=== PATIENT | male | born 1970 | race Caucasian/White ===

== ENCOUNTER → 2017-09-26 14:45 | Outpatient (CLI) | payer OTHER, SELFPAY ==
[2017-09-26 16:57] LABS: T4 Free Direct 1.39 ng/dL (0.76-1.46); Thyroid Stim Hormone (TSH) 0.77 uIU/mL (0.358-3.74)
== END ==
PROVIDERS: Family Provider Family Medicine; PCP Family Medicine; Visit Provider Family Medicine
DX: E03.9 Hypothyroidism, unspecified (principal)
CPT/HCPCS: 36415; 84439; 84443

== ENCOUNTER 2017-11-15 09:00 | Outpatient (RCR) | payer OTHER, SELFPAY ==
--- NOTE | 2017-09-05 14:07 | HP.PTEVAL_ITS ---
Patient's Visit Information ENRRIQUE VILLANUEVA is a 47 year old M referred to Physical Therapy by Enrrique Bryan with a diagnosis of LLD. Date of Evaluation: 09/04/17 Physical Therapist: Bianka White - Visit Plan Frequency: 1x/Week Duration: 4 Weeks Plan: Fit for orthotics - Subjective Subjective: Dr Bryan found out that he has been having pain on the left side down towards the ankle. He thinks left is shorter than the right by 1 cm. He was working and walking a lot and he has had pain for several months. [place] a crack in his ankle and started to feel pain. walks one mile to work and one mile home. [employer] so he is standing. Works 5 hours. Wears slip resistance shoes and has new shoes that did not make a difference. Pain comes and goes. Best: 0/10 Eases: sitting down Agg: walking or standing for long periods of time. No radiating pain. No Tingling in the toes. Describes the pain as sharp/shooting. Sleep: not disturbed. No back or hip pains. Works out and does exercises in the basement at home. PMHx: hernia, thyroid. Meds: thyroid. Lives with family. - Objective Posture: FH, RS, increased kyphosis. Gait: no deviation noted but he does have moderate pes planus. SLS: 30 sec without LOB. HR/TR: able. Stairs: asc/desc 8 recip with 1 HR. Palpation: not tender throughout left LE. ROM: WNL in all planes of ankle/hip/knee of the left LE. Strength: Ankle: 5/5, Knee: 5/5 Hip: 4 +/5 throughout. Flex: Gastroc: mild restriction, Hamstring: moderate restriction. LLD: none noted at malleolus. Pelvic alignment: WNL - Goals Goal 1:: Patient will be I with orthotic wear Goal Time Frame: 4-6 Weeks - Rehabilitation Potential Physical Therapy Diagnosis: patient presents with increased pes planus and cortez pain Rehabilitation Potential: Fair - Anticipated Interventions Thank you for the opportunity to evaluate your patient. For Medicare and Medicare HMO plans, please review the plan of care and approve it. It will need to be FAXED BACK to us at [phone] for Medicare purposes. Please let me know if there are questions or concerns regarding this plan of care. Physician Signature: Date:
--- NOTE | 2017-11-15 12:06 | HP.PTDCSUM ---
HP - PT D/C Summary It has been my pleasure to treat ENRRIQUE VILLANUEVA under orders from Enrrique Bryan, for the diagnosis of LLD for a total of 3 visit(s). Discharge Date: 11/15/17 Please see the following information for a summary of their discharge status. - Subjective Subjective: 12 days ago walking down bleachers turned L ankle. Walked out of there but it hurt. No doctor visit yet. It still hurts. Was feeling better with inserts before he turned his ankle. L lateral ankle is where it hurts and it remains swollen. Not improving. Inserts wrok ok and may have been helping leg pain. - Pain L lateral ankle Pain Intensity (Out of 10): 3 - Objective Objective/Function: L ankle. AROM is full but painful with PF and inv end range. Strength is normal on DF and inv but ev and PF weak and painful. Very tender over fibular malleolus bone but not in soft tissue. Pt has L antalgia. - Goals Goal 1:: Patient will be I with orthotic wear Goal Progress: Goal Met - Plan Plan: D/C, pt to return to doctor for next step on new ankle sprain. - D/C Information Discharge Comments: Pt doing well with orthotics but has sprained ankle nad has a new injury. I recommend he schedule with doctor for possible x ray due to new tenderness over L lat malleoli. If there are questions or concerns regarding this patient's physical therapy, please feel free to call me at [phone]. Thank you for the referral of this patient. Sincerely, Enrrique Bob, DPT, OC
== END 2017-11-15 19:00 | disposition home or self-care (01) ==
LOC: PT 09:00
PROVIDERS: Family Provider Family Medicine; PCP Family Medicine; Visit Provider Family Medicine
DX: M21.70 Unequal limb length (acquired), unspecified site (principal); M24.9 Joint derangement, unspecified
CPT/HCPCS: 97162; 97164; 97763

== ENCOUNTER → 2017-11-15 09:59 | Outpatient (CLI) | payer OTHER, SELFPAY | PROVIDERS: Family Provider Family Medicine; PCP Family Medicine; Visit Provider Nurse Practitioner Family | DX: M25.572 Pain in left ankle and joints of left foot (principal) | CPT/HCPCS: 73610 ==

== ENCOUNTER 2017-11-20 16:23 | Outpatient (RCR) | payer OTHER, SELFPAY ==
--- NOTE | 2017-11-20 16:58 | HP.PTEVAL_ITS ---
Patient's Visit Information RACHELE VILLANUEVA is a 47 year old M referred to Physical Therapy by ZAY Stevenson with a diagnosis of Left Ankle Sprain. Date of Evaluation: 11/20/17 Physical Therapist: Bianka White - Visit Plan Plan: Patient presents with ankle sprain at this time PT feels appropriate for brace and hold for 3 weeks to assess if not better - Subjective Subjective: Patient reports falling on the bleachers at the high school and spraining his left ankle. Patient reports that when he is working his ankle bothers him and when he is walk long distances. The pain is not getting any better. Pain comes and goes. When he is relaxed the pain does not bother him at all. Had an x-ray which showed that it was not broken. Is not wearing a brace. Ices when he sleeps at night. Wears orthotics in the shoes. PMHx/meds: no change since last time he was in. - Objective Posture: FH, RS. Gait: no deviation noted- mild toe turned in on the left> right. SLS: unable to SLS but can weight shift and maintain with UE A for 30 seconds with no increased sway- mild increase in s/s. HR/TR: able with mild increase in s/s. ROM: WFL in all planes. Strength: 5/5 throughout. Palpation : tender along posterior malleolus. Flex: Gastroc: mild restriction Soleus: no restriction. Observation: no edema, no bruising. - Rehabilitation Potential Physical Therapy Diagnosis: Patient presents with ankle sprain at this time PT feels appropriate for brace and hold for 3 weeks to assess if not better - Anticipated Interventions Thank you for the opportunity to evaluate your patient. For Medicare and Medicare HMO plans, please review the plan of care and approve it. It will need to be FAXED BACK to us at [phone] for Medicare purposes. Please let me know if there are questions or concerns regarding this plan of care. Physician Signature: Date:
== END 2017-11-20 19:00 | disposition home or self-care (01) ==
LOC: PT 16:23
PROVIDERS: Family Provider Family Medicine; PCP Family Medicine; Visit Provider Nurse Practitioner Family
DX: S93.402D Sprain of unspecified ligament of left ankle, subsequent encounter (principal)
CPT/HCPCS: 97161

== ENCOUNTER → 2017-12-01 09:26 | Outpatient (CLI) | payer OTHER, SELFPAY ==
--- NOTE | 2017-12-01 09:31 | RAD_ITS ---
STUDY: X-RAY - ABDOMEN/PELVIS REASON FOR EXAM: Male, 47 years old. Abdominal pain and abdominal collects. TECHNIQUE: 3 upright views were obtained. COMPARISON: None. FINDINGS: Normal visualized lung bases. There is an abundance of fecal material throughout the colon. There is no demonstrated free abdominal air. The visualized liver, spleen and kidneys are grossly normal in size and morphology. Normal soft tissue structures. There is a grade 2 anterolisthesis of L4 on L5. RAD/Abd Inc Decub and/or Erect IMPRESSION: Large amount of fecal material is seen throughout the colon. Electronically Signed: Hernan Lopez MD at 11:30 EDT Tel [phone], Service support ,
== END ==
PROVIDERS: Family Provider Family Medicine; PCP Family Medicine; Visit Provider Family Medicine
DX: R10.84 Generalized abdominal pain (principal)
CPT/HCPCS: 74019

== ENCOUNTER 2018-03-15 03:46 | Emergency (ER) | payer OTHER, SELFPAY ==
[2018-03-15 03:48] VITALS: BP 141/101; PULSE 52; RESP 16; TEMP 36.4; O2SAT 99; BMI 26.1
[2018-03-15] MEDS: 0.9% Normal Saline 1,000 ML 999 ML IV (04:26)
[2018-03-15 04:37] LABS: Absolute Lymphocyte Count 1.07 X10^3/ul (0.83-4.51); Absolute Neutrophil Count 10.1 X10^3/uL (2.0-7.7); Basophil# 0.03 X10^3/uL; Basophil% 0.3 % (0-1); Eosinophil# 0.01 X10^3/uL; Eosinophils% 0.1 % (0-5); Hematocrit 46.6 % (40-54); Hemoglobin 15.7 g/dl (13.0-16.5); Lymphocyte # 1.07 X10^3/ul (4.0); Lymphocyte % 9.2 % (19-41); Mean Corp Hgb Conc 33.7 g/gl (32-36); Mean Corpuscular Hgb 33.1 pg (27.0-32.0); Mean Corpuscular Volume 98.1 fL (80-94); Mean Platelet Vol. 10.5 fl (6.2-12.0); Monocyte# 0.46 X10^3/uL; Monocyte% 3.9 % (0-10); Neutrophil # 10.08 X10^3/uL (2.7-7.7); Neutrophil % 86.3 % (47-70); Platelet Count 185 K/mm3 (150-450); RBC Distribution Width CV 13.9 % (11.6-14.6); RBC Distribution Width SD 49.3 fl (35.1-43.9); Red Blood Count 4.75 M/mm3 (4.6-6.2); White Blood Count 11.7 K/mm3 (4.4-11.0)
[2018-03-15 04:38] LABS: POSITIVE COUNT NO; POSITIVE DIFFERENTIAL NO; POSITIVE MORPHOLOGY NO
[2018-03-15 04:55] LABS: ALB/GLOB Ratio 0.8 RATIO (0.9-2.4); AST(SGOT) 25 U/L (15-37); Alanine Aminotransfer ALT/SGPT 31 U/L (16-61); Albumin, Serum 3.7 g/dL (3.2-5.0); Alkaline Phosphatase 54 U/L (45-117); Anion Gap 8 (5-15); BUN 23 mg/dL (7-18); BUN/Creat Ratio 20.5 RATIO (10-20); Calcium,Total 9.3 mg/dL (8.5-10.1); Chloride 104 mmol/L (98-107); Creatinine, Serum 1.12 mg/dL (0.70-1.30); EST Glomerular Filtration Rate 74 mL/min (>60); Est Glom Filt Rate - Afr Amer 90 mL/min (>60); Estimated Creatinine Clearance 62.29 ml/min; Globulin 4.4 g/dL (2.2-4.2); Glucose 145 mg/dL (74-106); Lipase 90 U/L (73-393); Potassium 4.1 mmol/L (3.5-5.1); Protein, Total 8.1 g/dL (6.4-8.2); Sodium Level 141 mmol/L (136-145)
--- NOTE | 2018-03-15 05:02 | ED.DEP ---
ED Disposition - Plan for ED Patient: Chief Complaint: Abd Pain Instructions: ED Nausea Vomiting Referrals: Enrrique Bryan MD [Primary Care Provider] -
--- NOTE | 2018-03-15 05:03 | ED.DCSUM_ITS ---
- ER Visit Summary Date of Service: 03/15/18 Chief Complaint: Nausea and vomiting History of Present Illness: The patient is a 47 M with a history of Down syndrome and hypothyroidism who presents with 2 episodes of vomiting. He does state that he was having abdominal pain earlier but it is unclear if he is having any currently, stating I am not sure. No diarrhea. No fever. He denies any recent illness. He states that he felt fine yesterday. Physical Examination: Afebrile vitals unremarkable Patient resting comfortably no distress Moist mucous membranes Heart regular bradycardia Lungs are clear Abdomen soft nontender nondistended Alert Test Results: Labs notable for mild leukocytosis a white count of 11.7. Hepatic function and lipase are normal Emergency Department Course and Treatment: Patient was treated with IV Zofran here for symptoms. He has had no further vomiting. His labs are unremarkable. He has a benign abdominal exam. Patient advised to follow-up as an outpatient as needed or to return for new or worsening symptoms. Treatment Plan: [] Disposition: Discharge Impression: Vomiting This note was generated with [employer] dictation software. It may contain incorrect words, spelling, and punctuation that were not noted in review of the chart prior to signing ED Disposition - Plan for ED Patient: Chief Complaint: Abd Pain Referrals: Enrrique Bryan MD [Primary Care Provider] -
[2018-03-15 05:05] VITALS: BP 116/63; PULSE 59; RESP 17; O2SAT 99
== END 2018-03-15 05:09 | disposition home or self-care (01) ==
PROVIDERS: Emergency Provider Emergency Medicine; Family Provider Family Medicine; PCP Family Medicine
DX: R11.2 Nausea with vomiting, unspecified (principal); Q90.9 Down syndrome, unspecified; E03.9 Hypothyroidism, unspecified; Z79.899 Other long term (current) drug therapy
CPT/HCPCS: 80053; 83690; 85025; 96360; 96361; 96374; 99285; J7030; A4216; J2405

== ENCOUNTER → 2018-03-29 10:13 | Outpatient (CLI) | payer OTHER, SELFPAY ==
[2018-03-15 03:48] VITALS: BMI 26.1
--- NOTE | 2018-03-29 10:16 | RAD_ITS ---
STUDY: X-RAY - CERVICAL SPINE REASON FOR EXAM: Male, 47 years old. 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 TECHNIQUE: 5 view(s) of the cervical spine were obtained including flexion and extension views. COMPARISON: Comparison is made with prior study dated November 29, 2016. FINDINGS: Normal anterior atlantoaxial articulation. Normal odontoid process. Normal cervical lordosis. Anterior spondylosis at the C6-C7 level. Marked degree of disc space narrowing at the C6-C7 level. Stable 3 mm anterior listhesis of the C3 on C4. The soft tissue structures are unremarkable. RAD/Cerv Spine 4 or 5 Views IMPRESSION: Stable anterior listhesis of C3 on C4. Disc space narrowing and spondylosis at the C6-C7 level. Electronically Signed: Hernan Lopez MD at 9:43 EST Tel [phone], Service support ,
--- OUTSIDE RECORDS SUMMARY | 2018-06-03 00:24 | XMS RPT_ITS ---
:1970 Author Organization OHIP Care Team Providers Name Role Phone Irvin, Rachele Primary Care Unavailable Donny Hedrick Attending Unavailable Bryan, Rachele Attending Unavailable Bryan, Rachele Referring Unavailable Bryan, Rachele Primary Care Unavailable Bryan, Rachele Attending Unavailable Bryan, Rachele Referring Unavailable Bryan, Rachele Primary Care Unavailable Bryan, Rachele Attending Unavailable Bryan, Rachele Referring Unavailable Bryan, Rachele Primary Care Unavailable Lee, Poonam Attending Unavailable Lee, Poonam Referring Unavailable Bryan, Rachele Primary Care Unavailable Lee, Poonam Attending Unavailable Bryan, Rachele Primary Care Unavailable Lee, Poonam Referring Unavailable Bryan, Rachele Attending Unavailable Bryan, Rachele Referring Unavailable Bryan, Rachele Primary Care Unavailable PROBLEMS PROBLEMS DATE TYPE CONDITION / CODE ATTENDING STATUS SOURCE 12/01/2017 Unknown R10.83 - Colic / Rachele Bryan Active [place]isa R10.83(ICD-10) [facility] Repository 11/22/2017 Unknown M21.70 - Unequal Rachele Bryan Active [place]isa limb length Community (acquired[facility] Hospital unspecified site Repository / M21.70(ICD-10) PROCEDURES PROCEDURES No Procedure Records FoundRESULTS RESULTS CERV SPINE 4 OR 5 Observed: 03/29/2018 Status: F Source: [place] VIEWS 10:17 AM [facility] REPOSITORY [facility] Imaging Services [address] [place] [address] Cerv Spine 4 or 5 Views MR#: [id number] Acct: [id number] Name: RACHELE VILLANUEVA Rep #: [id number] : 1970 M 47 From: Hernan Lopez MD PCP: Rachele Bryan MD Status: REG CLI Study: Cerv Spine 4 or 5 Views Date of Exam: 03/29/18 Exam# [id number] Ordering Dr: Rachele Bryan MD STUDY: X-RAY - CERVICAL SPINE REASON FOR EXAM: Male, 47 years old. 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 TECHNIQUE: 5 view(s) of the cervical spine were obtained including flexion and extension views. COMPARISON: Comparison is made with prior study dated November 29, 2016. FINDINGS: Normal anterior atlantoaxial articulation. Normal odontoid process. Normal cervical lordosis. Anterior spondylosis at the C6- C7 level. Marked degree of disc space narrowing at the C6-C7 level. Stable 3 mm anterior listhesis of the C3 on C4. The soft tissue structures are unremarkable. RAD/Cerv Spine 4 or 5 Views IMPRESSION: Stable anterior listhesis of C3 on C4. Disc space narrowing and spondylosis at the C6-C7 level. Electronically Signed: Hernan Lopez MD at 9:43 EST Tel [phone], Service support , CC: Rachele Bryan MD [employer] Internship: Signed EMERGENCY DEPARTMENT Observed: 03/15/2018 Status: F Source: EMPIRE SUMMARY 5:03 AM [facility] Medical Records Department [address] [place] [address] Emergency Department Summary 03/15/18 0500 MR#: [id number] Acct: [id number] Name: RACHELE VILLANUEVA J Rep #: [id number] : 1970 47 From: Donny Hedrick MD PCP: Rachele Bryan MD Status: REG ER - ER Visit Summary Date of Service: 03/15/18 Chief Complaint: Nausea and vomiting History of Present Illness: The patient is a 47 M with a history of Down syndrome and hypothyroidism who presents with 2 episodes of vomiting. He does state that he was having abdominal pain earlier but it is unclear if he is having any currently, stating I am not sure. No diarrhea. No fever. He denies any recent illness. He states that he felt fine yesterday. Physical Examination: Afebrile vitals unremarkable Patient resting comfortably no distress Moist mucous membranes Heart regular bradycardia Lungs are clear Abdomen soft nontender nondistended Alert Test Results: Labs notable for mild leukocytosis a white count of 11.7. Hepatic function and lipase are normal Emergency Department Course and Treatment: Patient was treated with IV Zofran here for symptoms. He has had no further vomiting. His labs are unremarkable. He has a benign abdominal exam. Patient advised to follow-up as an outpatient as needed or to return for new or worsening symptoms. Treatment Plan: [] Disposition: Discharge Impression: Vomiting This note was generated with iCreate dictation software. It may contain incorrect words, spelling, and punctuation that were not noted in review of the chart prior to signing ED Disposition - Plan for ED Patient: Chief Complaint: Abd Pain Referrals: Rachele Bryan MD [Primary Care Provider] - What to do if you have Problems For any increased pain, shortness of breath, bleeding, nausea or vomiting, chest pain, or any unexpected problems, contact your Primary Care Provider. Call [facility] ([phone]) or report to the closest Emergency Room. Call 911 if necessary. 03/15/18502 <Electronically signed by Donny Hedrick MD> Date Donny Hedrick MD Cosigner Signature (If Indicated): Date CC: Rachele Bryan MD DISCHARGE INSTRUCTION Observed: 03/15/2018 Status: F Source: EMPIRE 5:03 AM [facility] REPOSITORY [facility] Medical Records Department [address] [place] [address] Discharge Instruction 03/15/18501 MR#: [id number] Acct: [id number] Name: RACHELE VILLANUEVA Rep #: [id number] : 1970 47 From: Donny Hedrick MD PCP: Rachele Bryan MD Status: REG ER ED Disposition - Plan for ED Patient: Chief Complaint: Abd Pain Instructions: ED Nausea Vomiting Referrals: Rachele Bryan MD [Primary Care Provider] - What to do if you have Problems For any increased pain, shortness of breath, bleeding, nausea or vomiting, chest pain, or any unexpected problems, contact your Primary Care Provider. Call [facility] ([phone]) or report to the closest Emergency Room. Call 911 if necessary. 03/15/18 0503 <Electronically signed by Donny Hedrick MD> Date Donny Hedrick MD Cosigner Signature (If Indicated): Date CC: Rachele Bryan MD CBC W/DIFF, AUTOMATED Collected: 03/15/2018 Status: F Source: [place] 3:50 AM [facility] REPOSITORY TYPE CODE TESTS RESULT OUT OF RANGE REFERENCE UNITS LAB L100.1000 4.4-11.0 K/mm3 High WBC 11.7 LAB L100.1200 4.6-6.2 M/mm3 Normal RBC 4.75 LAB L100.1300 13.0-16.5 g/dl Normal HGB 15.7 LAB L100.1400 40-54 % Normal HCT 46.6 LAB L100.1500 80-94 fL High MCV 98.1 LAB L100.1600 27.0-32.0 pg High MCH 33.1 LAB L100.1700 32-36 g/gl Normal MCHC 33.7 LAB L100.1810 11.6-14.6 % Normal RDW CV 13.9 LAB L100.1820 35.1-43.9 fl High RDW SD 49.3 LAB L100.1900 150-450 K/mm3 Normal PLT 185 LAB L100.2000 6.2-12.0 fl Normal MPV 10.5 LAB L100.2100 47-70 % High NEUT% 86.3 LAB L100.2200 19-41 % Low LY% 9.2 LAB L100.2300 0-10 % Normal MONO% 3.9 LAB L100.2400 0-5 % Normal EO% 0.1 LAB L100.2500 0-1 % Normal BASO% 0.3 LAB L100.2550 0.0-0.9 % Normal IM GRAN % 0.200 Result Comment: IG% - Immature Granulocytes (promyelocytes, myelocytes and metamyelocytes) > 1% indicates that a LEFT SHIFT is Present. LAB L100.2620 2.0-7.7 X10 3/uL High Absolute Neut 10.1 LAB L100.2720 0.83-4.51 X10 3/ul Normal Absolute Lymph 1.07 Performed By: #### L100.0100 #### [facility] [address] [place], [address] COMPREHENSIVE METABOLIC Collected: 03/15/2018 Status: F Source: [place] [facility] 3:50 AM [facility] REPOSITORY TYPE CODE TESTS RESULT OUT OF RANGE REFERENCE UNITS LAB L501.0100 74-106 mg/dL High GLU 145 Result Comment: Fasting Glucose result greater than or equal to 126 mg/dL suggests DIABETES MELLITUS per A.D.A. criteria. Please note revised GLUCOSE reference range effective 2017. LAB L501.1000 7-18 mg/dL High BUN 23 LAB L501.1100 0.70-1.30 mg/dL Normal CREAT,SERUM 1.12 Result Comment: The validity of the calculated GFR AND GFRAA in patients over 70 years has not been determined. Clinical correlation is essential. LAB L501.1110 >60 mL/min Normal EST GFR 74 Result Comment: Non- GFR Calc LAB L501.1115 >60 mL/min Normal EST GFR - AA 90 Result Comment: GFR Calc LAB L501.1255 ml/min Normal Estimated CRCL 62.29 LAB L501.1300 10-20 RATIO High BUN/CRE 20.5 LAB L501.1500 6.4-8. g/dL Normal 2 T PROT 8.1 LAB L501.1800 3.2-5. g/dL Normal 0 ALB 3.7 LAB L501.1950 2.2-4. g/dL High 2 GLOB 4.4 LAB L501.2000 0.9-2. RATIO Low 4 A/G 0.8 LAB L501.2200 8.5-10 mg/dL Normal .1 CA 9.3 LAB L501.4100 15-37 U/L Normal AST 25 LAB L501.4305 45-117 U/L Normal ALK P 54 LAB L501.4405 16-61 U/L Normal ALT 31 LAB L501.4600 0.20-1 mg/dL Normal .00 T BILI 0.50 LAB L501.5300 136-14 mmol/L Normal 5 NA 141 LAB L501.5600 3.5-5. mmol/L Normal 1 K 4.1 LAB L501.5900 98-107 mmol/L Normal CL 104 LAB L501.6100 21.0-3 mmol/L Normal 2.0 CO2 29.0 LAB L501.6200 5-15 Normal GAP 8 Performed By: #### L500.4050, L501.2450 #### [facility] [address] [place], [address] LIPASE Collected: 03/15/2018 Status: F Source: [place] 3:50 AM [facility] REPOSITORY TYPE CODE TESTS RESULT OUT OF RANGE REFERENCE UNITS LAB L501.2450 73-393 U/L Normal LIPASE 90 Performed By: #### L500.4050, L501.2450 #### [facility] [address] [facility] [place], [address] ABD INC DECUB Observed: 12/01/2017 Status: F Source: DENISA AND/OR ERECT 9:31 AM [facility] REPOSITORY [facility] Imaging Services [address] [place] [address] Abd Inc Decub and/or Erect MR#: [id number] Acct: [id number] Name: RACHELE VILLANUEVA Rep #: [id number] : 1970 M 47 From: Hernan Lopez MD PCP: Rachele Bryan MD Status: REG CLI Study: Abd Inc Decub and/or Erect Date of Exam: 12/01/17 Exam# [id number] Ordering Dr: Rachele Bryan MD STUDY: X-RAY - ABDOMEN/PELVIS REASON FOR EXAM: Male, 47 years old. Abdominal pain and abdominal collects. TECHNIQUE: 3 upright views were obtained. COMPARISON: None. FINDINGS: Normal visualized lung bases. There is an abundance of fecal material throughout the colon. There is no demonstrated free abdominal air. The visualized liver, spleen and kidneys are grossly normal in size and morphology. Normal soft tissue structures. There is a grade 2 anterolisthesis of L4 on L5. RAD/Abd Inc Decub and/or Erect IMPRESSION: Large amount of fecal material is seen throughout the colon. Electronically Signed: Hernan Lopez MD at 11:30 EDT Tel [phone], Service support , CC: Rachele Bryan MD Fashion Bu[employer] Internship: Signed INITAL EVALUATION (1) Observed: 11/20/2017 Status: F Source: EMPIRE - PT 4:58 PM [facility] REPOSITORY [facility] Physical Therapy [facility] [address] [place], [place] [address] Fax REHABILITATION SERVICES INITIAL EVALUATION MR#: [id number] Acct: [id number] Name: RACHELE VILLANUEVA Rep #: [id number] : 1970 47 From: Bianka White DPT Referring Dr.: ZAY Lee Status: REG RCR Insurance: [employer] SELF PAY INSURANCE Patient's Visit Information RACHELE VILLANUEVA is a 47 year old M referred to Physical Therapy by ZAY Stevenson with a diagnosis of Left Ankle Sprain. Date of Evaluation: 11/20/17 Physical Therapist: Bianka White - Visit Plan Plan: Patient presents with ankle sprain at this time PT feels appropriate for brace and hold for 3 weeks to assess if not better - Subjective Subjective: Patient reports falling on the bleachers at the high school and spraining his left ankle. Patient reports that when he is working his ankle bothers him and when he is walk long distances. The pain is not getting any better. Pain comes and goes. When he is relaxed the pain does not bother him at all. Had an x-ray which showed that it was not broken. Is not wearing a brace. Ices when he sleeps at night. Wears orthotics in the shoes. PMHx/meds: no change since last time he was in. - Objective Posture: FH, RS. Gait: no deviation noted- mild toe turned in on the left>right. SLS: unable to SLS but can weight shift and maintain with UE A for 30 seconds with no increased sway- mild increase in s/s. HR/TR: able with mild increase in s/s. ROM: WFL in all planes. Strength: 5/5 throughout. Palpation: tender along posterior malleolus. Flex: Gastroc: mild restriction Soleus: no restriction. Observation: no edema, no bruising. - Rehabilitation Potential Physical Therapy Diagnosis: Patient presents with ankle sprain at this time PT feels appropriate for brace and hold for 3 weeks to assess if not better - Anticipated Interventions Thank you for the opportunity to evaluate your patient. For Medicare and Medicare HMO plans, please review the plan of care and approve it. It will need to be FAXED BACK to us at [phone] for Medicare purposes. Please let me know if there are questions or concerns regarding this plan of care. Physician Signature: Date: <Electronically signed by Bianka White DPT> 11/20/17 1658 CC: ZAY Lee; Rachele Bryan MD ELR Signed For Medicare only, by signing this I certify the plan of care. Physicians Signature Date PT D/C SUMMARY (1) Observed: 11/17/2017 Status: F Source: [place] 6:45 AM [facility] REPOSITORY [facility] Physical Therapy [facility] [address] [place] [address] Fax REHABILITATION SERVICES DISCHARGE SUMMARY MR#: [id number] Acct: [id number] Name: RACHELE VILLANUEVA Rep #: [id number] : 1970 47 From: Rachele Bob DPT, AMLAIKA, CSCS Referring Dr.: Rachele Bryan MD Status: REG RCR Insurance: [employer]IG[employer] SELF PAY INSURANCE HP - PT D/C Summary It has been my pleasure to treat RACHELE VILLANUEVA under orders from Rachele Bryan, for the diagnosis of LLD for a total of 3 visit(s). Discharge Date: 11/15/17 Please see the following information for a summary of their discharge status. - Subjective Subjective: 12 days ago walking down bleachers turned L ankle. Walked out of there but it hurt. No doctor visit yet. It still hurts. Was feeling better with inserts before he turned his ankle. L lateral ankle is where it hurts and it remains swollen. Not improving. Inserts wrok ok and may have been helping leg pain. - Pain L lateral ankle Pain Intensity (Out of 10): 3 - Objective Objective/Function: L ankle. AROM is full but painful with PF and inv end range. Strength is normal on DF and inv but ev and PF weak and painful. Very tender over fibular malleolus bone but not in soft tissue. Pt has L antalgia. - Goals Goal 1:: Patient will be I with orthotic wear Goal Progress: Goal Met - Plan Plan: D/C, pt to return to doctor for next step on new ankle sprain. - D/C Information Discharge Comments: Pt doing well with orthotics but has sprained ankle nad has a new injury. I recommend he schedule with doctor for possible x ray due to new tenderness over L lat malleoli. If there are questions or concerns regarding this patient's physical therapy, please feel free to call me at [phone]. Thank you for the referral of this patient. Sincerely, Rachele Bob DPT, OC <Electronically signed by Rachele Bob DPT, MALAIKA, CSCS> 11/17/17 0645 CC: Rachele Bryan MD JULIOG Signed ANKLE MIN 3 VIEWS Observed: 11/15/2017 Status: F Source: EMPIRE 10:08 AM [facility] REPOSITORY [facility] Imaging Services [address] [place] [address] Ankle min 3 Views MR#: [id number] Acct: [id number] Name: RACHELE VILLANUEVA Rep #: [id number] : 1970 M 47 From: Tarun Montenegro MD PCP: Rachele Bryan MD Status: REG CLI Study: Ankle min 3 Views Date of Exam: 11/15/17 Exam# [id number] Ordering Dr: POONAM LEE STUDY: X-RAY - LEFT ANKLE REASON FOR EXAM: Male, 47 years old. Trauma TECHNIQUE: 3 view(s) of the ankle. COMPARISON: None. FINDINGS: There is no evidence of fracture or dislocation. There are no significant degenerative changes. There are no radiodense foreign bodies. RAD/Ankle min 3 Views IMPRESSION: No fracture or dislocation. Electronically Signed: Tarun Montenegro, at 20:53 EDT Tel , Service support , CC: Rachele Bryan MD; POONAM LEE Fashion Buying Internship: Signed PROGRESS Observed: 09/29/2017 Status: COMPLETED Source: [place] 3:46 PM [facility] REPOSITORY O ID: [id number] Author: Zeus Marcano Service: (none) Author Type: Nurse Practitioner Type: Progress Notes Filed: 09/29/2017 5:14 PM Note Text: Subjective HPI HPI Rachele Hagen is a 47 year old male who presents today for CC of right little finger infection. This started 1 week ago. Has tried nothing for relief. Symptoms are worsened by nothing. 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 MEDICATIONS levothyroxine 50 mcg ORAL tablet Take 1 tablet by mouth once daily. ascorbic acid (VITAMIN C) 500 mg ORAL Tab Take one(1) tablet daily. amoxicillin-clavulanic acid (AUGMENTIN) 875-125 mg per tablet Take 1 tablet by mouth twice daily for 10 days. FAMILY HISTORY Problem Relation Age of Onset - Stroke Mother age 74; ischemic - None Father - Colon Cancer Other p-unc, age mid 50's; mgm; none others (dx'd in early 50's); father has had polyps; - Diabetes Other NONE Social History Substance Use Topics - Smoking status: Never Smoker - Smokeless tobacco: Never Used - Alcohol use Yes Comment: not much; 1-2 a week Review of Systems Constitutional: Negative for chills and fever. Skin: Negative for itching and rash. Objective Blood pressure 120/78, pulse 80, temperature 36.7 ?C (98.1 ?F), temperature source Tympanic, resp. rate 16, weight 62.2 kg (137 lb 3.2 oz). Physical Exam Constitutional: He is oriented to person, place, and time and well-developed, well-nourished, and in no distress. Non-toxic appearance. He does not have a sickly appearance. No distress. HENT: Head: Normocephalic and atraumatic. Pulmonary/Chest: Effort normal. No accessory muscle usage. No respiratory distress. Musculoskeletal: Hands: Neurological: He is alert and oriented to person, place, and time. Skin: He is not diaphoretic. ASSESSMENT/PLAN: 1. Paronychia of finger of right hand - ICD9: 681.02, ICD10: L03.011 - Begin treatment with augmentin - No lymphangetic streaking, this was defined for patient to watch for and to seek medical care immediately if appears - Follow up for recheck in three days if symptoms persist, sooner if worsen - AMOXICILLIN 875 MG-POTASSIUM CLAVULANATE 125 MG TABLET - WOUND CULTURE AND GRAM STAIN Prescription instructions reviewed with patient as applicable. Patient advised if symptoms do not improve or if symptoms worsen sooner, to contact the office for further evaluation by their primary care physician. Potential red flag symptoms discussed with the patient. Reviewed appropriate action plan to take if red flag symptoms occur. Patient agreeable to treatment plan. Zeus Marcano APRN.CNP CNOV Observed: 09/29/2017 Status: COMPLETED Source: [place] 3:15 PM [facility] REPOSITORY Office Visit (WSTR) RACHELE HAGEN ([id number]) 1970 M Date Time Provider Department 09/29/17 3:15 PM ZEUS MARCANO (JAMAAL) WSTR During your visit today, we recorded the following information about you: Temperature Pulse Respiration Blood pressure 98.1 degrees 80/minute 16/minute 120/78 Weight 62.2 kg Zeus Marcano APRN.CNP 09/29/2017 5:14 PM Signed Subjective HPI HPI Rachele Hagen is a 47 year old male who presents today for CC of right little finger infection. This started 1 week ago. Has tried nothing for relief. Symptoms are worsened by nothing. 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 MEDICATIONS levothyroxine 50 mcg ORAL tablet Take 1 tablet by mouth once daily. ascorbic acid (VITAMIN C) 500 mg ORAL Tab Take one(1) tablet daily. amoxicillin-clavulanic acid (AUGMENTIN) 875-125 mg per tablet Take 1 tablet by mouth twice daily for 10 days. FAMILY HISTORY Problem Relation Age of Onset - Stroke Mother age 74; ischemic - None Father - Colon Cancer Other p-unc, age mid 50's; mgm; none others (dx'd in early 50's); father has had polyps; - Diabetes Other NONE Social History Substance Use Topics - Smoking status: Never Smoker - Smokeless tobacco: Never Used - Alcohol use Yes Comment: not much; 1-2 a week Review of Systems Constitutional: Negative for chills and fever. Skin: Negative for itching and rash. Objective Blood pressure 120/78, pulse 80, temperature 36.7 ?C (98.1 ?F), temperature source Tympanic, resp. rate 16, weight 62.2 kg (137 lb 3.2 oz). Physical Exam Constitutional: He is oriented to person, place, and time and well-developed, well-nourished, and in no distress. Non-toxic appearance. He does not have a sickly appearance. No distress. HENT: Head: Normocephalic and atraumatic. Pulmonary/Chest: Effort normal. No accessory muscle usage. No respiratory distress. Musculoskeletal: Hands: Neurological: He is alert and oriented to person, place, and time. Skin: He is not diaphoretic. ASSESSMENT/PLAN: 1. Paronychia of finger of right hand - ICD9: 681.02, ICD10: L03.011 - Begin treatment with augmentin - No lymphangetic streaking, this was defined for patient to watch for and to seek medical care immediately if appears - Follow up for recheck in three days if symptoms persist, sooner if worsen - AMOXICILLIN 875 MG-POTASSIUM CLAVULANATE 125 MG TABLET - WOUND CULTURE AND GRAM STAIN Prescription instructions reviewed with patient as applicable. Patient advised if symptoms do not improve or if symptoms worsen sooner, to contact the office for further evaluation by their primary care physician. Potential red flag symptoms discussed with the patient. Reviewed appropriate action plan to take if red flag symptoms occur. Patient agreeable to treatment plan. Zeus Marcano APRN.JAMAAL Referring Provider: SELF [200] Allergies As of Date: 09/29/2017 (No Known Allergies) Date Reviewed: 09/29/2017 Reviewed by: Zeus (Jamaal) - Fully Assessed Reason for Visit: right pinky finger infection [Other] Cmt: x 2 days Primary Visit Diagnosis:Paronychia of finger of right hand [L03.011] Order(s):amoxicillin-clavulanic acid (AUGMENTIN) 875-125 mg per tabletTake 1 tablet by mouth twice daily for 10 days.Disp: 20 tabletRfl: 0 WOUND CULTURE AND GRAM STAIN [SQWCUL] Order #: [id number] Prescriptions as of 09/29/2017 Sig: LEVOTHYROXINE 50 MCG TABLET Take 1 tablet by mouth once d* VITAMIN C 500 MG TABLET Take one(1) tablet daily. AMOXICILLIN 875 MG-POTASSIUM * Take 1 tablet by mouth twice * Problem List As Of Date 09/29/2017 Noted Resolved GANGLION NOS [M67.40] More... TRISOMY 21 (DOWN SYNDROME) [Q90.9] More... AORTIC VALVE DISORDER [I35.9] More... HYPERLIPIDEMIA NEC/NOS [E78.5] More... MITRAL VALVE DISORDER [I05.9] More... More... Overweight [E66.3] INVALID FOR* Hypothyroid [E03.9] INVALID FOR* Prescriptions ordered this encounter Disp Refills Start End AMOXICILLIN 875 MG-POTASSIUM CLAVULA* 20 t* 0 09/29/2017 10/09/2017 Route: ORAL Sig: Take 1 tablet by mouth twice daily for 10 days. Encounter Status:Closed by ZEUS MARCANO CNP on 09/29/17 WOUND Observed: 09/29/2017 Status: F Source: [place] CULTURE/STAIN 12:12 AM [facility] REPOSITORY Sp. Request/Comment: - Swab Smear Result - Many Gram positive cocci in clusters --> ABNORMAL ALERT Moderate --> ABNORMAL ALERT Gram positive cocci in pairs and chains --> ABNORMAL ALERT Few Polymorphonuclear leukocytes Culture Result - Many Staphylococcus aureus --> ABNORMAL ALERT Many --> ABNORMAL ALERT Streptococcus agalactiae (Group B streptococcus) --> ABNORMAL ALERT Susceptibility testing not performed o n beta hemolytic streptococci due to predictable susceptibility to penicillin and other beta lactams. For testing, call Microbiology within 72 hours. --> ABNORMAL ALERT ORGANISM: Staphylococcus aureus METHOD: Minimum inhibitory concentration(Vitek) Antibiotic Interp ABHISHEK Status Erythromycin SUSCEPTIBLE 0.5 F Clindamycin SUSCEPTIBLE 0.25 F Tetracycline SUSCEPTIBLE <=1 F Vancomycin SUSCEPTIBLE <=0.5 F Oxacillin SUSCEPTIBLE 1 F Oxacillin susceptible staphylococci are susceptible to other penicillinase stable penicillins, beta lactam/beta lactamase inhibitor combinations, anti staphyloccal cephems, and carbapenems. Trimeth sulfameth SUSCEPTIBLE <=10 F Gentamicin SUSCEPTIBLE <=0.5 F Rifampin SUSCEPTIBLE <=0.5 F Rifampin should not be used alone for antimicrobial therapy. Doxycycline SUSCEPTIBLE <=0.5 F Performed By: #### WCUL #### [facility] [address] [place], [place] [address] THYROID STIM HORMONE Collected: 09/26/2017 Status: F Source: DENISA (TSH) 2:49 PM [facility] REPOSITORY Order Comment: Order Date: 09/25/17 Order Info: 3016-3 - TSH Order Info: 3024-7 - T4F TYPE CODE TESTS RESULT OUT OF RANGE REFERENCE UNITS LAB L501.9520 0.358-3.74 uIU/mL Normal TSH 0.77 Performed By: #### L501.9520, L506.0400 #### [facility] [address] [place], [address] T4 FREE DIRECT Collected: 09/26/2017 Status: F Source: EMPIRE 2:49 PM [facility] REPOSITORY Order Comment: Order Date: 09/25/17 Order Info: 3016-3 - TSH Order Info: 3024-7 - T4F TYPE CODE TESTS RESULT OUT OF RANGE REFERENCE UNITS LAB L506.0400 0.76-1.46 ng/dL Normal T4 FREE 1.39 DIRECT Performed By: #### L501.9520, L506.0400 #### [facility] [address] [place], [address] INITAL EVALUATION (1) Observed: 09/05/2017 Status: F Source: DENISA - PT 2:07 PM [facility] REPOSITORY [facility] [place] [address] Fax REHABILITATION SERVICES INITIAL EVALUATION MR#: [id number] Acct: [id number] Name: RACHELE VILLANUEVA Rep #: [id number] : 1970 47 From: Bianka White DPT Referring Dr.: Rachele Bryan MD Status: REG RCR Insurance: [facility] SELF PAY INSURANCE Patient's Visit Information RACHELE VILLANUEVA is a 47 year old M referred to Physical Therapy by Rachele Bryan with a diagnosis of LLD. Date of Evaluation: 09/04/17 Physical Therapist: Bianka White - Visit Plan Frequency: 1x/Week Duration: 4 Weeks Plan: Fit for orthotics - Subjective Subjective: Dr Bryan found out that he has been having pain on the left side down towards the ankle. He thinks left is shorter than the right by 1 cm. He was working and walking a lot and he has had pain for several months. [place] a crack in his ankle and started to feel pain. walks one mile to work and one mile home. [employer] so he is standing. Works 5 hours. Wears slip resistance shoes and has new shoes that did not make a difference. Pain comes and goes. Best: 0/10 Eases: sitting down Agg: walking or standing for long periods of time. No radiating pain. No Tingling in the toes. Describes the pain as sharp/shooting. Sleep: not disturbed. No back or hip pains. Works out and does exercises in the basement at home. PMHx: hernia, thyroid. Meds: thyroid. Lives with family. - Objective Posture: FH, RS, increased kyphosis. Gait: no deviation noted but he does have moderate pes planus. SLS: 30 sec without LOB. HR/TR: able. Stairs: asc/desc 8 recip with 1 HR. Palpation: not tender throughout left LE. ROM: WNL in all planes of ankle/hip/knee of the left LE. Strength: Ankle: 5/5, Knee: 5/5 Hip: 4+/5 throughout. Flex: Gastroc: mild restriction, Hamstring: moderate restriction. LLD: none noted at malleolus. Pelvic alignment: WNL - Goals Goal 1:: Patient will be I with orthotic wear Goal Time Frame: 4-6 Weeks - Rehabilitation Potential Physical Therapy Diagnosis: patient presents with increased pes planus and cortez pain Rehabilitation Potential: Fair - Anticipated Interventions Thank you for the opportunity to evaluate your patient. For Medicare and Medicare HMO plans, please review the plan of care and approve it. It will need to be FAXED BACK to us at [phone] for Medicare purposes. Please let me know if there are questions or concerns regarding this plan of care. Physician Signature: Date: <Electronically signed by Bianka White DPT> 09/05/17 1407 CC: Rachele Bryan MD ELR Signed For Medicare only, by signing this I certify the plan of care. Physicians Signature Date ALLERGIES ALLERGIES DATE TYPE / CODE NAME / CODE REACTION SEVERITY SOURCE 08/30/2013 Drug No Known Unknown [facility] Allergy/416 Allergies/J27367 Hospital 168330(SNOM 0388(RXNORM) Repository ED CT) Drug NO KNOWN [facility] Class/55744 ALLERGIES [facility] 1003(SNOMED Repository CT) ENCOUNTERS ENCOUNTERS ADMIT/DISCHARGE ACCOUNT ADMITTING ENCOUNTER LOCATION SOURCE NUMBER CLASS 03/29/2018 [id number] General acute hospital ing:MTRAD Repository 03/15/2018/03/15/19 [id number] Emergency [address] ing:ED Repository 12/01/2017 [id number] [facility] ing:MTRAD Repository 11/20/2017 [id number] [facility]ulatory [facility] ing:PT Repository 11/15/2017 [id number] Ambulatory [facility] ing:MTRAD Repository 11/15/2017/11/16/19 [id number] Ambulatory [address] ing:PT Repository 09/29/2017/10/03/19 [id number] Ambulatory [address] Repository 09/26/2017 [id number] [place] [facility] ing:MTLAB Repository PAYERS PAYERS ENCOUNTER GUARANTOR PAYER SUBSCRIBER SOURCE 03/29/2018 RACHELE J Primary RACHELE J Denisa [id number] Insurance:CIGNAPolicy VANVOORENDOB: Community [place]: [id number] [id number] Repository [address]Lld: (330) Date:3920-50-32KX [phone] () 197[place], [place] [address]XG: 03/29/2018 Secondary NOT GIVENUNK [place] Insurance:SELF PAY [facility] Number: Effective Repository Date:2018-03-29 03/15/2018 RACHELE J Primary RACHELE J [place] [id number] Insurance:CIGNAPolicy VANVOORENDOB: [facility] [place]CRE Number: [id number] [id number] Repository [address]Nyc: (330) Date:4322-80-46ZZ [phone] () [place], [place] [address]NN: 03/15/2018 Secondary NOT GIVENUNK [place] Insurance:SELF PAY [facility] Number: Effective Repository Date:2018-03-15 12/01/2017 RACHELE J Primary RACHELE J Denisa [id number] Insurance:CIGNAPolicy VANVOORENDOB: [facility] [place] Number: [id number] [id number] Repository [address]Otf: (330) Date:1313-19-59WM [phone] () [id number], [place] [address]BO: 12/01/2017 Secondary NOT GIVENUNK [place] Insurance:SELF PAY [facility] Number: Effective Repository Date:2017-12-01 11/20/2017 RACHELE J Primary RACHELE J Den[place] [id number] Insurance:CIGNAPolicy VANVOORENDOB: [facility] [place] Number: [id number] [id number] Repository [address]Cqi: (330) Date:6471-19-09MN [phone] () [id number] COMER [address]CJ: 11/20/2017 Secondary NOT GIVENUNK [place] Insurance:SELF PAY [facility] Effective Repository Date:2017-11-17 11/15/2017 RACHELE J Primary RACHELE J Denisa [id number] Insurance:CIGNAPolicy VANVOORENDOB: Community [place] Number: [id number] [id number] Repository [address]Wmk: (330) Date:7891-84-76JT [phone] () [id number] COMER [address]LM: 11/15/2017 Secondary NOT GIVENUNK [place] Insurance:SELF PAY [facility] Number: Effective Repository Date:2017-11-15 11/15/2017 RACHELE J Primary RACHELE J Denisa [id number] Insurance:CIGNAPolicy VANVOORENDOB: Community [place] Number: [id number], [place] [id number] Repository [address]Mdq: (330) Date:7050-57-55VS [phone] () 187[address]PQOCFZFWAXJ, [place] [address]RF: 11/15/2017 Secondary NOT GIVENUNK [place] Insurance:SELF PAY [facility] Number: Effective Repository Date:2017-08-29 09/26/2017 Rachele J Primary Rachele J Denisa [id number] Insurance:CIGNAPolicy VanvoorenDOB: Community [place] Number: [id number], [place] [id number] Repository [address]Zhh: (330) Date:4721-47-81NB [phone] () [id number], [place] [address]TF: 09/26/2017 Secondary NOT GIVENUNK [place] Insurance:SELF PAY [facility] Number: Effective Repository Date:2017-09-26
== END ==
PROVIDERS: Family Provider Family Medicine; PCP Family Medicine; Referring Provider Family Medicine; Visit Provider Family Medicine
DX: Z00.00 Encounter for general adult medical examination without abnormal findings (principal)
CPT/HCPCS: 72050

== ENCOUNTER → 2018-04-27 08:40 | Outpatient (CLI) | payer OTHER, SELFPAY ==
[2018-04-13 07:53] VITALS: BMI 26.3
--- NOTE | 2018-04-27 08:42 | ECHOD_ITS ---
Reason For Study: ARRHYTHMIA Procedure This was a 2D Doppler, Color Flow transthoracic echocardiogram. Exam performed in department. Left Ventricle Normal LV size. Left ventricular systolic function is lower limits of normal. The estimated ejection fraction is 53 %. Stage 2 diastolic dysfunction. No regional wall motion abnormalities noted. Right Ventricle Normal RV size. Normal systolic function. Atria Normal left atrium. Normal right atrium. Mitral Valve Mild mitral valve prolapse. Mild (1+) eccentric mitral valve insufficiency. Tricuspid Valve Normal tricuspid valve. Mild tricuspid valve insufficiency. Pulmonary artery systolic pressure is 24 mmHg. Aortic Valve Trisinus/trileaflet aortic valve. Mild focal aortic valve calcification. Mild (1+) eccentric aortic valve insufficiency. Pulmonic Valve Normal pulmonic valve. Great Vessels Normal aortic root. The pulmonary artery is normal size. Normal inferior vena cava. Pericardium/Pleural No pericardial effusion. MMode/2D Measurements & Calculations LVIDd: 4.2 cm IVSd: 0.94 cm Ao root diam: 2.7 cm LVIDs: 3.4 cm LVPWd: 0.98 cm RVDd: 3.3 cm FS: 19.8 % LAV(MOD-bp): 34.1 ml LA A4 area: 11.8 cm2 LA dimension(2D): 3.4 cm LAV(MOD-bp) Indexed: 20.6 ml/m2 LAV(MOD-sp2): 38.3 ml LAV(MOD-sp4): 29.3 ml RA A4 area: 10.9 cm2 Time Measurements MV dec time: 0.24 sec Doppler Measurements & Calculations MV E max avtar: 81.0 cm/sec Lat Peak E' Avtar: 3.0 cm/sec Med Peak E' Avtar: 4.7 cm/sec MV A max avtar: 52.9 cm/sec E/E' lat: 26.7 E/E' med: 17.2 MV E/A: 1.5 Ao V2 max: 112.6 cm/sec AI max avtar: 393.1 cm/sec LV V1 max: 119.8 cm/sec Ao max P.3 mmHg AI max P.9 mmHg LV V1 max P.7 mmHg AI dec slope: 171.0 cm/sec2 AI P1/2t: 673.4 msec PA V2 max: 91.3 cm/sec TR max avtar: 219.4 cm/sec TR max P.3 mmHg Interpretation Summary Normal LV size. Left ventricular systolic function is lower limits of normal. The estimated ejection fraction is 53 %. Stage 2 diastolic dysfunction. Mild mitral valve prolapse. Mild (1+) eccentric mitral valve insufficiency. Mild (1+) eccentric aortic valve insufficiency. Mild tricuspid valve insufficiency. Ordering Physician: Tony Madsen Referring Physician: DARNELL, RACHELE Performed By: Ludy Willett NORMA, RVT
== END ==
PROVIDERS: Family Provider Family Medicine; PCP Family Medicine; Referring Provider Internal Medicine Cardiovascular Disease; Visit Provider Internal Medicine Cardiovascular Disease
DX: I34.0 Nonrheumatic mitral (valve) insufficiency (principal); I49.3 Ventricular premature depolarization; I35.1 Nonrheumatic aortic (valve) insufficiency
CPT/HCPCS: 93306

== ENCOUNTER → 2018-10-16 | Outpatient (CLI) | payer OTHER, SELFPAY ==
[2018-04-13 07:53] VITALS: BMI 26.3
--- NOTE | 2018-10-16 08:18 | BD_ITS ---
STUDY: DUAL ENERGY X-RAY ABSORPTIOMETRY / DXA REASON FOR EXAM: Male, 48 years old. Loss of height. History of Down syndrome. TECHNIQUE: Bone Mineral Density (BMD) measurements of lumbar spine and bilateral hips were obtained. COMPARISON: Comparison is made with prior study dated June 02, 2015. FINDINGS: Lumbar Spine (L1-L4): g/cm2 (0.712) / T-score (-4.2) / Z-score (-4.1) Findings are suggestive of osteoporosis with a high fracture risk. Left Femur Total: g/cm2 (0.708) / T-score (-2.7) / Z-score (-2.4) Left Femoral Neck: g/cm2 (0.695) / T-score (-2.9) / Z-score (-2.3) Right Femur Total: g/cm2 (0.728) / T-score (-2.6) / Z-score (-2.3) Right Femoral Neck: g/cm2 (0.703) / T-score (-2.8) / Z-score (-2.2) The T-Scores on the most recent prior examination were: Lumbar Spine (L1-L4): There has been worsening of bone density since the previous examination. Left Femur Total: which represents an improvement of 7.6%. Right Femur Total: which represents an improvement of 3.3%. BD/Dexa Bone Density Study IMPRESSION: The patient is considered osteoporotic as outlined below according to World [place] Organization (WHO) criteria with a high fracture risk. There has been improvement of bone density since the previous examination. Reference Information: The T-score is the number of standard deviations above or below the standard which is normal for young adults at their peak bone mineral density. The World Health Organization (WHO) interprets the T-scores as follows: Above -1 Normal bone density Between -1 and -2.5 Osteopenia Equal to / or below -2.5 Osteoporosis As a practical clinical guideline, osteopenia may be graded as follows: Mild -1 through -1.5 Moderate -1.6 through -2.0 Severe -2.1 through -2.4 The Z-score is the number of standard deviations above or below age-matched controls. A Z-score of less than -1.5 would be considered abnormal. References: 1. NIH Osteoporosis and Related Bone Diseases http://www.osteo.org 2. International Society for Clinical Densitometry http://www.iscd.org 3. National Osteoporosis Foundation http://www.nof.org Electronically Signed: Hernan Lopez, at 15:32 EDT , Service support ,
== END | disposition home or self-care (01) ==
LOC: OPBD 08:11
PROVIDERS: Family Provider Family Medicine; PCP Family Medicine; Referring Provider Family Medicine; Visit Provider Family Medicine
DX: M81.0 Age-related osteoporosis without current pathological fracture (principal)
CPT/HCPCS: 77080

== ENCOUNTER → 2019-01-22 13:10 | Outpatient (CLI) | payer OTHER, SELFPAY ==
[2018-04-13 07:53] VITALS: BMI 26.3
[2019-01-22 14:24] LABS: Absolute Lymphocyte Count 1.45 X10^3/uL (0.83-4.51); Absolute Neutrophil Count 3.5 X10^3/uL (2.0-7.7); Basophil# 0.04 X10^3/uL; Basophil% 0.7 % (0-1); Eosinophil# 0.04 X10^3/uL; Eosinophils% 0.7 % (0-5); Hematocrit 46.3 % (40-54); Hemoglobin 14.6 g/dL (13.0-16.5); Lymphocyte # 1.45 X10^3/ul (4.0); Lymphocyte % 26.8 % (19-41); Mean Corp Hgb Conc 31.5 g/dL (32-36); Mean Corpuscular Hgb 31.8 pg (27.0-32.0); Mean Corpuscular Volume 100.9 fL (80-94); Mean Platelet Vol. 10.3 fl (6.2-12.0); Monocyte# 0.43 X10^3/uL; Monocyte% 7.9 % (0-10); NRBC Flagged by Analyzer 0 % (0-5); Neutrophil # 3.45 X10^3/uL (2.7-7.7); Neutrophil % 63.7 % (47-70); Platelet Count 193 K/mm3 (150-450); RBC Distribution Width CV 13.6 % (11.6-14.6); RBC Distribution Width SD 50.4 fl (35.1-43.9); Red Blood Count 4.59 M/mm3 (4.6-6.2); White Blood Count 5.4 K/mm3 (4.4-11.0)
[2019-01-22 15:39] LABS: ALB/GLOB Ratio 0.8 RATIO (0.9-2.4); AST(SGOT) 25 U/L (15-37); Alanine Aminotransfer ALT/SGPT 24 U/L (16-61); Albumin, Serum 3.4 g/dL (3.2-5.0); Alkaline Phosphatase 42 U/L (45-117); Anion Gap 4 (5-15); BUN 17 mg/dL (7-18); BUN/Creat Ratio 18.3 RATIO (10-20); Calcium,Total 9.1 mg/dL (8.5-10.1); Chloride 107 mmol/L (98-107); Creatinine, Serum 0.93 mg/dL (0.70-1.30); EST Glomerular Filtration Rate 91 mL/min (>60); Est Glom Filt Rate - Afr Amer 111 mL/min (>60); Globulin 4.1 g/dL (2.2-4.2); Glucose 92 mg/dL (74-106); Potassium 4.3 mmol/L (3.5-5.1); Protein, Total 7.5 g/dL (6.4-8.2); Sodium Level 140 mmol/L (136-145); Thyroid Stim Hormone (TSH) 3.48 uIU/mL (0.358-3.74)
== END ==
PROVIDERS: Family Provider Family Medicine; PCP Family Medicine; Referring Provider Family Medicine; Visit Provider Family Medicine
DX: I49.9 Cardiac arrhythmia, unspecified (principal)
CPT/HCPCS: 36415; 80053; 84443; 85025

== ENCOUNTER → 2019-01-30 09:12 | Outpatient (CLI) | payer OTHER, SELFPAY ==
[2019-01-25 14:41] VITALS: BMI 26.3
== END ==
PROVIDERS: Family Provider Family Medicine; PCP Family Medicine; Referring Provider Internal Medicine Cardiovascular Disease; Visit Provider Internal Medicine Cardiovascular Disease
DX: I49.3 Ventricular premature depolarization (principal)
CPT/HCPCS: 93225; 93226

== ENCOUNTER → 2019-02-13 08:22 | Outpatient (CLI) | payer OTHER, SELFPAY ==
[2019-01-25 14:41] VITALS: BMI 26.3
--- NOTE | 2019-02-13 08:26 | ECHOD_ITS ---
Reason For Study: ARRYTHMIA Procedure This was a 2D Doppler, Color Flow transthoracic echocardiogram. Exam performed in department. Left Ventricle Normal LV size. The estimated ejection fraction is 50 %. No regional wall motion abnormalities noted. Right Ventricle Normal RV size. Normal systolic function. Atria Normal left atrium. Normal right atrium. Mitral Valve Mild diffuse mitral valve thickening. Mild mitral valve prolapse. Tricuspid Valve Normal tricuspid valve. Mild tricuspid valve insufficiency. Pulmonary artery systolic pressure is 24 mmHg. Aortic Valve Trisinus/trileaflet aortic valve. Mild (1+) eccentric aortic valve insufficiency. Pulmonic Valve Normal pulmonic valve. Great Vessels Normal aortic root. The pulmonary artery is normal size. Normal inferior vena cava. Pericardium/Pleural No pericardial effusion. MMode/2D Measurements & Calculations LVIDd: 5.1 cm IVSd: 0.64 cm LVOT diam: 2.3 cm LVIDs: 3.9 cm LVPWd: 0.76 cm LVOT area: 4.2 cm2 RVDd: 2.6 cm FS: 23.7 % Ao root diam: 3.0 cm LAV(MOD-bp): 41.5 ml LA A4 area: 14.6 cm2 LAV(MOD-bp) Indexed: 26.1 ml/m2 LAV(MOD-sp2): 39.6 ml LAV(MOD-sp4): 39.6 ml LA dimension(2D): 3.0 cm RA A4 area: 12.0 cm2 Time Measurements MV dec time: 0.17 sec Doppler Measurements & Calculations MV E max avtar: 86.1 cm/sec Lat Peak E' Avtar: 10.2 cm/sec Med Peak E' Avtar: 5.9 cm/sec MV A max avtar: 56.5 cm/sec E/E' lat: 8.4 E/E' med: 14.5 MV E/A: 1.5 Ao V2 max: 122.2 cm/sec AI max avtar: 438.8 cm/sec LV V1 max: 93.0 cm/sec Ao max P.0 mmHg AI max P.3 mmHg LV V1 max P.5 mmHg YULIANA(V,D): 3.2 cm2 AI dec slope: 195.8 cm/sec2 AI P1/2t: 656.3 msec PA V2 max: 105.3 cm/sec TR max avtar: 225.6 cm/sec TR max P.4 mmHg Interpretation Summary Normal LV size. The estimated ejection fraction is 50 %. Mild (1+) eccentric aortic valve insufficiency. Pulmonary artery systolic pressure is 24 mmHg. Mild diffuse mitral valve thickening. Mild mitral valve prolapse. Ordering Physician: Tony Madsen Referring Physician: Enrrique Bryan Performed By: Kalyani Segura, RDCS, RVT
== END ==
PROVIDERS: Family Provider Family Medicine; PCP Family Medicine; Referring Provider Internal Medicine Cardiovascular Disease; Visit Provider Internal Medicine Cardiovascular Disease
DX: I49.3 Ventricular premature depolarization (principal); R42 Dizziness and giddiness
CPT/HCPCS: 93306

== ENCOUNTER → 2020-01-16 10:27 | Outpatient (CLI) | payer OTHER, SELFPAY ==
[2019-08-13 09:45] VITALS: BMI 27.5
[2020-01-16 13:09] LABS: T4 Free Direct 0.96 ng/dL (0.76-1.46)
[2020-01-16 13:46] LABS: Vitamin B12 643 pg/mL (211-911)
== END ==
PROVIDERS: PCP Family Medicine; Referring Provider Psychiatry & Neurology Neurology; Visit Provider Psychiatry & Neurology Neurology
DX: F03.90 Unspecified dementia, unspecified severity, without behavioral disturbance, psychotic disturbance, mood disturbance, and anxiety (principal)
CPT/HCPCS: 36415; 82607; 83921; 84439; 84443

== ENCOUNTER → 2020-05-04 14:43 | Outpatient (CLI) | payer OTHER, SELFPAY ==
[2020-03-18 10:25] VITALS: BMI 26.9
[2020-05-04 18:47] LABS: Thyroid Stim Hormone (TSH) 0.02 uIU/mL (0.358-3.74)
== END ==
PROVIDERS: PCP Family Medicine; Referring Provider Family Medicine; Visit Provider Family Medicine
DX: E03.9 Hypothyroidism, unspecified (principal)
CPT/HCPCS: 36415; 84443

== ENCOUNTER → 2020-05-06 10:33 | Outpatient (CLI) | payer OTHER, SELFPAY ==
[2020-03-18 10:25] VITALS: BMI 26.9
[2020-05-06 12:50] LABS: Vitamin B12 648 pg/mL (211-911)
== END ==
PROVIDERS: PCP Family Medicine; Referring Provider Family Medicine; Visit Provider Family Medicine
DX: D64.9 Anemia, unspecified (principal)
CPT/HCPCS: 36415; 82607

== ENCOUNTER 2020-05-22 10:43 | Outpatient (RCR) | payer OTHER, SELFPAY ==
[2020-03-18 10:25] VITALS: BMI 26.9
[2020-05-28] MEDS: COVID-19 VACC, MRNA(PFIZER)/PF 30 MCG/0.3 ML SYRINGE IM (14:59)
[2020-06-18] MEDS: COVID-19 VACC, MRNA(PFIZER)/PF 30 MCG/0.3 ML SYRINGE IM (14:30)
== END 2020-08-18 23:59 ==
LOC: IMMUN 10:43
PROVIDERS: PCP Family Medicine; Visit Provider Family Medicine
DX: Z23 Encounter for immunization (principal)
CPT/HCPCS: 0001A; 0002A; 91300

== ENCOUNTER → 2020-07-06 11:53 | Outpatient (CLI) | payer OTHER, SELFPAY ==
[2020-03-18 10:25] VITALS: BMI 26.9
[2020-07-06 15:47] LABS: Free T3 4.4 pg/mL (2.18-3.98); T4 Free Direct 1.68 ng/dL (0.76-1.46); Thyroid Stim Hormone (TSH) < 0.01 uIU/mL (0.358-3.74)
== END ==
PROVIDERS: PCP Family Medicine; Visit Provider Family Medicine
DX: E03.9 Hypothyroidism, unspecified (principal)
CPT/HCPCS: 36415; 84439; 84443; 84481